=== PATIENT | male | born 1980 | race Caucasian/White ===

== ENCOUNTER 2019-03-07 15:36 | Emergency (ER) | payer MEDICARE, OTHER ==
[~2019-03-07] VITALS: Ht 182.9 cm; Wt 91.6 kg
[~2019-03-07 15:36] MED LIST: ESOM40CA PO; GEMF600T8 PO; NORT50CA3 PO; OXYB5TAB7 PO; OXYC-302 PO; PHEN-418 PO; RISP0.5T3 PO; SACC250C8 PO; SERT100T PO; TAMS-11 PO; TOPI100T8 PO; VERA240C2 PO
[2019-03-07] MEDS ORDERED: OXYcodone/APAP 5/325MG TABLET PO ONE (16:00)
[2019-03-07] MEDS ORDERED: OXYcodone/APAP 5/325MG TABLET ONE (16:04)
[2019-03-07] MEDS ORDERED: HYDROmorphone 2 MG/ML, 1ML IM ONE (18:00)
[2019-03-07 18:20] VITALS: BP 106/51
== END 2019-03-07 18:22 | disposition home or self-care (01) ==
LOC: ED 18:16
DX: H92.01 Otalgia, right ear (principal); Z86.73 Personal history of transient ischemic attack (TIA), and cerebral infarction without residual deficits; Z90.89 Acquired absence of other organs; Z90.49 Acquired absence of other specified parts of digestive tract
CPT/HCPCS: 70480; 96372; 99284; J1170